=== PATIENT | female | born 1945 | race Caucasian/White ===

== ENCOUNTER 2019-02-11 19:29 | Emergency (ER) | payer OTHER ==
[~2019-02-11] VITALS: Ht 154.9 cm; Wt 103.1 kg
[2019-02-11 19:36] VITALS: Ht 154.9 cm; Wt 103.1 kg
[2019-02-11] MEDS ORDERED: KETOROLAC 30 MG INJ IM STA (21:10)
[2019-02-11] MEDS ORDERED: IBUP-1561 PO (21:22)
--- NOTE | 2019-02-11 21:27 | ERD ---
ER Documentation Chief Complaint Chief Complaint ABSCESS TO LEFT 3RD DIGIT X'S 2 DAYS HPI 73-year-old female past medical history of hypertension, diabetes who presents with complaint of pain to the left third digit over the past 2 days. Patient states she thinks an abscess is forming. Denies history of previous paronychia. She denies fevers, chills and otherwise is without complaint. Patient noted with elevated blood pressures, patient states she did not take her blood pressure medications today, denies any chest pain or respiratory symptoms. ROS All systems reviewed and are negative except as per history of present illness. Medications Home Meds Active Scripts Cephalexin* (Keflex*) 500 Mg Capsule, 500 MG PO QID for 7 Days, CAP Prov:JEUDINE,GETHO PA-C 02/11/19 Ibuprofen* (Motrin*) 400 Mg Tab, 400 MG PO Q6, #30 TAB Prov:JEUDINE,GETHO PA-C 02/11/19 Allergies Allergies: Coded Allergies: No Known Allergy (Unverified , 02/11/19) FmHx Family History: No diabetes, No coronary disease, No other Physical Exam Vitals Vital Signs Date Temp Pulse Resp B/P (MAP) Pulse Ox O2 O2 Flow FiO2 Time Delivery Rate 02/11/19 98.0 58 18 127/68 97 Room Air 22:24 (87) 02/11/19 97.7 88 20 176/84 98 19:36 (114) Physical Exam I have reviewed the triage vital signs. Const: Well nourished, well developed, appears stated age Eyes: PERRL, no conjunctival injection HENT: NCAT, Neck supple without meningismus CV: RRR, Warm, well-perfused extremities RESP: CTAB, Unlabored respiratory effort GI: soft, non-tender, non-distended, no masses MSK: No gross deformities appreciated Skin: Warm, dry. Left third digit with significant area of swelling, erythema to the lateral aspect of finger, tender to nailbed on palpation, pale white area of distention noted Neuro: grossly non focal Psych: Appropriate mood and affect. Results 24 hrs Current Medications Medications Dose Sig/Mike Start Time Status Last (Trade) Ordered Route PRN Stop Time Admin Dose Reason Admin Ketorolac 30 mg ONCE STAT 02/11/19 DC 02/11/19 Tromethamine IM 21:10 21:30 (Toradol) 02/11/19 21:15 Lidocaine 20 ml ONCE ONCE 02/11/19 DC (Xylocaine SC 21:30 1% (Mdv) 20 02/11/19 21:31 ml) Diphtheria/ 0.5 ml ONCE ONCE 02/11/19 DC 02/11/19 Tetanus/Acell IM* 21:30 21:30 Pertussis 02/11/19 21:31 (Adacel) Procedures/MDM 73-year-old female with noted paronychia to left third digit consistent with paronychia. Area successfully incised and drained without complications in the ED per protocol. Will discharge with appropriate antibiotics and pain medications. Abscess Incision and Drainage with irrigation by me: Location: Left third digit Anesthesia: Local 1% Lidocaine Technique: Irrigated. Disrupted loculation, incision made along nailbed per protocol, and ingrown nail section removed Packing: None Complications: Neurovascularly intact post procedure 48 hour wound check. Scar minimization instructions given. Will discharge with 7-day course of Keflex, appropriate pain medications DISPOSITION PLAN: We discussed follow up with the patient's primary care doctor within 24 to 48 hours. Patient counseled regarding my diagnostic impression and care plan. Prior to discharge all questions answered. Pt agrees with treatment plan and understands strict return precautions. Precautionary instructions provided including instructions to return to the ER if not improving or for any worsening or changing symptoms or concerns. Disclaimer: Inadvertent spelling and grammatical errors are likely due to EHR/dictation software use and do not reflect on the overall quality of patient care. Also, please note that the electronic time recorded on this note does not necessarily reflect the actual time of the patient encounter. Departure Diagnosis: Primary Impression: Pain of finger Additional Impression: Paronychia due to ingrown nail Condition: LIZZIE Clements PA-C Feb 11, 2019 21:27
[2019-02-11] MEDS ORDERED: DIPHTH/TET/ACEL PERTUSS (ADULT) 0.5 ML VIAL IM* ONE (21:30)
[2019-02-11] MEDS ORDERED: LIDOCAINE 1% (MDV) 20 ML INJ SC ONE (21:30)
[2019-02-11] MEDS ORDERED: CEPH-443 PO (21:52)
[2019-02-11 22:24] VITALS: BP 127/68; PULSE 58; RESP 18
== END 2019-02-11 22:25 | disposition home or self-care (01) ==
LOC: FTE 19:29
DX: L03.012 Cellulitis of left finger (principal); L60.0 Ingrowing nail; I10 Essential (primary) hypertension; E11.9 Type 2 diabetes mellitus without complications; Z23 Encounter for immunization
CPT/HCPCS: 26010; 90471; 90715; 96372; 99284; J1885